=== PATIENT | female | born 1930 | race Caucasian/White ===

== ENCOUNTER 2019-02-28 10:22 | Outpatient (CLI) | payer MEDICARE ==
--- NOTE | 2019-02-28 11:19 | RAD ---
XR Lumbar Spine 2 Or 3 View History: M a 48.062 spinal stenosis Comparison: Lumbar spine MRI 2014 Findings: Moderate dextro scoliosis of lumbar spine. Possible surgical clips in the right hemipelvis with suture material. There is narrowing of the central interspinous space from L1-L5. No acute fracture or malalignment. M ultilevel degenerative disc space height loss. 3 mm L3 over L4 anterolisthesis. Moderate vascular calcifications of the aorta. Impression: Advanced degenerative changes described.
--- NOTE | 2019-02-28 11:46 | MRI ---
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 MRI 2014 Findings: Moderate atherosclerotic plaque of the aorta without aneurysmal dilatation. No hydronephros is. Mild bilateral paraspinal muscle atrophy. No marrow infiltrative process. Conus medullaris terminates near the superior endplate of L1. Levels are as follows: L1/L2: Severe facet arthropathy. Circumferential disc osteophyte complex. Mild effacement of ventral CSF space without spinal canal narrowing. Moderate right and severe left neural foraminal narrowing. L2/L3: Severe degenerative disc space height loss is circumferential disc osteophyte complex. Large h ypertrophic facet osteophytes. Severe ligamentum flavum verge the. Moderate right and severe left neural foraminal narrowing with abutment of the left exiting and traversing nerve roots. L3/L4: There is 2 to 3 mm anterolisthesis. Severe facet arthropathy with hypertrophic osteophytes. Se gudelia left and moderate right neural foraminal narrowing. Spinal canal is narrowed to 4 mm. Extensive ligament of flavum hypertrophy. There is posterior displacement of anterior tissue as an ad aptation to subluxation. L4/L5: Moderate degenerative disc space height loss. 6 bilateral subfrontal posterior disc osteophyte complexes with right extraforaminal disc extrusion. Severe hypertrophic facet arthropathy on the left and moderate on the right. Moderate left and severe right neural foraminal narrowing. L5/S1: Broad-based posterior disc protrusion, asymmetric extending from the central to the lateral re cess left-sided foraminal zone. Moderate hypertrophic facet arthropathy. Moderate left and mild right neural foraminal narrowing. Impression: Extensive multilevel spondylosis as described with severe neural foraminal narrowing urvashi mcdonnell with spinal canal narrowing at L3/L4.
== END 2019-02-28 10:23 | disposition home or self-care (01) ==
LOC: SCSMRI 10:22
PROVIDERS: ATTEND Family Medicine
DX: M48.062 Spinal stenosis, lumbar region with neurogenic claudication (principal); M47.816 Spondylosis without myelopathy or radiculopathy, lumbar region
CPT/HCPCS: 72100; 72148